=== PATIENT | female | born 1990 | race Caucasian/White ===

== ENCOUNTER 2021-03-31 22:25 | Inpatient (IN) | payer OTHER ==
[~2021-03-31] VITALS: Ht 167.6 cm; Wt 67.6 kg
[2021-03-31] MEDS ORDERED: PRENATAL CAPLE1 EAC1 (23:09)
[2021-03-31] MEDS ORDERED: PROGESTERO50 MG/1 ML (23:10)
== END 2021-04-07 11:29 | disposition home or self-care (01) | DRG 833 ==
LOC: OBS/DEL 22:25 → LDR 04-01 09:52 → OB/GYN 04-01 09:52 → OBS/DEL 04-01 09:52 → OB/GYN 04-01 19:21
PROVIDERS: ADMIT Obstetrics & Gynecology; ATTEND Obstetrics & Gynecology
PROC: 4A1HXFZ Monitoring of Products of Conception, Cardiac Rhythm, External Approach (ICD-10-PCS; principal; 2021-04-01)
PROC: BY4FZZZ Ultrasonography of Third Trimester, Single Fetus (ICD-10-PCS; 2021-04-01)
PROC: BU46ZZZ Ultrasonography of Uterus (ICD-10-PCS; 2021-04-01)
PROC: BT4JZZZ Ultrasonography of Kidneys and Bladder (ICD-10-PCS; 2021-04-01)
DX: O23.03 Infections of kidney in pregnancy, third trimester (principal); B96.20 Unspecified Escherichia coli [E. coli] as the cause of diseases classified elsewhere; Z3A.29 29 weeks gestation of pregnancy; Z20.822 Contact with and (suspected) exposure to COVID-19

== ENCOUNTER 2021-05-31 01:28 | Inpatient (IN) | payer OTHER ==
[~2021-05-31] VITALS: Ht 167.6 cm; Wt 71.7 kg
[~2021-05-31 01:28] MED LIST: PRENATAL CAPLE1 EAC1; PROGESTERO50 MG/1 ML
== END 2021-06-03 14:18 | disposition home or self-care (01) | DRG 798 ==
LOC: OBS/DEL 01:28 → LDR 19:33 → OB/GYN 19:33 → LDR 19:59 → OB/GYN 06-01 13:42
PROVIDERS: ADMIT Obstetrics & Gynecology; ATTEND Obstetrics & Gynecology
PROC: 4A1HXFZ Monitoring of Products of Conception, Cardiac Rhythm, External Approach (ICD-10-PCS; 2021-05-31)
PROC: 10E0XZZ Delivery of Products of Conception, External Approach (ICD-10-PCS; principal; 2021-06-01)
PROC: 0HQ9XZZ Repair Perineum Skin, External Approach (ICD-10-PCS; 2021-06-01)
PROC: 10907ZC Drainage of Amniotic Fluid, Therapeutic from Products of Conception, Via Natural or Artificial Opening (ICD-10-PCS; 2021-06-01)
PROC: 3E033VJ Introduction of Other Hormone into Peripheral Vein, Percutaneous Approach (ICD-10-PCS; 2021-06-01)
PROC: 0UB70ZZ Excision of Bilateral Fallopian Tubes, Open Approach (ICD-10-PCS; 2021-06-02)
DX: O99.824 Streptococcus B carrier state complicating childbirth (principal); O70.0 First degree perineal laceration during delivery; Z37.0 Single live birth; Z30.2 Encounter for sterilization; Z3A.38 38 weeks gestation of pregnancy; Z20.822 Contact with and (suspected) exposure to COVID-19